=== PATIENT | female | born 1960 | race Caucasian/White ===

== ENCOUNTER → 2016-09-02 | Outpatient (CLI) | payer BC ==
[~2016-09-02] MED LIST: ASPI-482 PO; ESTR1PAT10 TD; ESTROGEN; GEMF600T3 PO; LISI10TA2 PO; METF500T4 PO; SIMV20TA3 PO
--- NOTE | 2016-09-02 12:23 | RAD ---
DATE: 09/02/2016 EXAM: DIGITAL SCREEN BILAT W/CAD HISTORY: Routine screening COMPARISON: 11/21/2014 This study was interpreted with the benefit of Computerized Aided Detection (CAD). FINDINGS: There are scattered fibroglandular densities in the breasts. No new or enlarging breast densities are seen. Benign type calcifications are present in both breasts. No suspicious microcalcifications have developed. IMPRESSION: Stable mammograms without evidence of malignancy. BI-RADS CATEGORY: 2 BENIGN FINDING(S) RECOMMENDED FOLLOW-UP: 12M 12 MONTH FOLLOW-UP PQRS compliance statement: Patient information was entered into a reminder system with a target due date for the next mammogram. Mammography is a sensitive method for finding small breast cancers, but it does not detect them all and is not a substitute for careful clinical examination. A negative mammogram does not negate a clinically suspicious finding and should not result in delay in biopsying a clinically suspicious abnormality. "Our facility is accredited by the [employer] Mammography Program."
== END | disposition home or self-care (01) ==
LOC: MAMMO 10:37
PROVIDERS: ATTEND Family Medicine
DX: Z12.31 Encounter for screening mammogram for malignant neoplasm of breast (principal)
CPT/HCPCS: G0202; 77067

== ENCOUNTER → 2017-09-16 | Outpatient (CLI) | payer BC | END | disposition home or self-care (01) | LOC: KCIC MAMMO 12:21 | DX: Z12.31 Encounter for screening mammogram for malignant neoplasm of breast (principal); N63.20 Unspecified lump in the left breast, unspecified quadrant; N63.10 Unspecified lump in the right breast, unspecified quadrant | CPT/HCPCS: 77067 ==

== ENCOUNTER → 2017-09-26 | Outpatient (CLI) | payer BC | END | disposition home or self-care (01) | LOC: KCIC MAMMO 12:45 | DX: N63.10 Unspecified lump in the right breast, unspecified quadrant (principal); N63.20 Unspecified lump in the left breast, unspecified quadrant; N60.01 Solitary cyst of right breast | CPT/HCPCS: 76641; 77066 ==

== ENCOUNTER 2017-10-18 08:51 | Day surgery (SDC) | payer BC ==
[2017-10-18] MEDS ORDERED: LIDOCAINE 1% Multi-Dose 20 ML VIAL. INJ (09:15)
[2017-10-18] MEDS: IV RINGERS,LACTATED 1000ML 1,000 ML IV (09:40)
[2017-10-18] MEDS ORDERED: fentaNYL PF VIAL 100 MCG/2 ML VIAL ×2 (12:11→14:05)
[2017-10-18] MEDS ORDERED: LIDOCAINE 1% PF 5 ML VIAL. (12:11)
[2017-10-18] MEDS ORDERED: PROPOFOL 20 ML IV (12:11)
[2017-10-18] MEDS ORDERED: SEVOFLURANE 16 TO 30 MINUTES. IH (13:07)
[2017-10-18] MEDS ORDERED: DEXAMETHASONE SOD PHOS 20 MG/5 ML VIAL. (13:07)
[2017-10-18] MEDS ORDERED: ONDANSETRON PF 4 MG/2 ML VIAL. (13:14)
[2017-10-18] MEDS: BUPIVACAINE-EPI 0.25%-1:200000 50 ML VIAL. (13:15)
[2017-10-18] MEDS ORDERED: IV RINGERS,LACTATED 1000ML 1,000 ML IV (13:42)
[2017-10-18] MEDS ORDERED: fentaNYL PF VIAL 100 MCG/2 ML VIAL IV (13:45)
[2017-10-18] MEDS ORDERED: MORPHINE SULFATE 2 MG/ML DISP.SYRIN. IV (13:45)
[2017-10-18] MEDS ORDERED: LIDOCAINE 1% PF 2 ML VIAL. ID (13:45)
[2017-10-18] MEDS ORDERED: ONDANSETRON PF 4 MG/2 ML VIAL. IV (13:45)
[2017-10-18 14:12] LABS: POC GLUCOSE 122 mg/dL (70-99)
[2017-10-18] MEDS: PROCHLORPERAZINE 10 MG/2 ML VIAL. IV (14:13)
[2017-10-18] MEDS: fentaNYL PF VIAL 100 MCG/2 ML VIAL IV (14:14)
[2017-10-18] MEDS ORDERED: HYDROcodone/APAP 5/325MG 1 TAB TABLET (14:30)
[2017-10-18] MEDS: HYDROcodone/APAP 5/325MG 1 TAB TABLET PO (14:35)
== END 2017-10-18 15:19 | disposition home or self-care (01) ==
LOC: US 08:51
DX: N63.10 Unspecified lump in the right breast, unspecified quadrant (principal)
CPT/HCPCS: 19083; 76098; 76942; 77065; 82962; J0780; J1100; J1956; J2405; J2704; J3010; J7120

== ENCOUNTER 2019-08-21 03:21 | Inpatient (IN) | payer BC ==
[~2019-08-21] VITALS: Ht 160 cm; Wt 91.5 kg
[~2019-08-21 03:21] MED LIST changes: -GEMF600T3 PO; +GEMF600T8 PO; +HYDR-3164 PO; +METF500T16 PO; -METF500T4 PO; +SIMV20TA18 PO; -SIMV20TA3 PO
[2019-08-21 04:04] LABS: BASO # 0.1 x10^3/uL (0.0-0.2); BASO % 1 % (0-3); EOS # 0.4 x10^3/uL (0.0-0.7); EOS % 4 % (0-3); HEMATOCRIT 41.3 % (36.0-47.0); LYMPH # 2.9 x10^3/uL (1.0-4.8); LYMPH % 27 % (24-48); MEAN CORPUSCULAR HEMOGLOBIN 29 pg (25-35); MEAN CORPUSCULAR HGB CONC 34 g/dL (31-37); MEAN CORPUSCULAR VOLUME 86 fL (79-100); MONO % 9 % (0-9); NEUT # 6.5 x10^3/uL (1.8-7.7); NEUT % 59 % (31-73); PLATELET COUNT 279 x10^3/uL (140-400); RED CELL DISTRIBUTION WIDTH 14.3 % (11.5-14.5)
--- NOTE | 2019-08-21 04:08 | RAD ---
CHEST AP ONLY Clinical Indication: Chest pain Comparison: None. Findings: The cardiomediastinal silhouette is normal. Lungs are clear. There is no pneumothorax. No pleural effusion is appreciated. No acute bone abnormality. IMPRESSION: No acute cardiopulmonary process. Electronically signed by: Chris Mejias MD (08/21/2019 4:05 AM) [id number]
--- NOTE | 2019-08-21 04:12 | PHYS DOC ---
Past Medical History Past Medical History: Diabetes-Type II, High Cholesterol, Hypertension Past Surgical History: Hysterectomy, Other Additional Past Surgical Histo: foot surgery Smoking Status: Never Smoker Alcohol Use: None Drug Use: None Adult General Chief Complaint Chief Complaint: MULTIPLE COMPLAINTS HPI HPI Patient is a 59 year old female with history of hypertension, dyslipidemia and diabetes who presents with multiple medical complaints. Patient reports hot flas hes and sweats upon from sleep 3 hours prior to ED arrival. She also reports tingling in feet and pain in left arm left elbow pain, no tenderness. Pain does not reproduce with movement. Reports nausea, no vomitingN No chest pain palpitations or shortness of breath. No urinary frequency urgency or burning. No other acute symptoms or complaints. [] Review of Systems Review of Systems Review of symptoms as per history of present illness. All other review symptoms are negative. All other systems were reviewed and found to be within normal limits, except as documented in this note. Current Medications Current Medications Current Medications Medications (Trade) Dose Ordered Sig/Darshan Start Time Stop Time Status Last Admin Dose Admin Aspirin (Children'S Aspirin) 324 mg 1X ONCE 08/21/19 05:00 08/21/19 05:01 UNV Clonidine HCl (Catapres) 0.1 mg STK-MED ONCE 08/21/19 04:17 08/21/19 04:18 DC Nitroglycerin (Nitrostat) 0.4 mg PRN Q5MIN PRN 08/21/19 05:00 UNV Allergies Allergies Allergies Coded Allergies Type Severity Reaction Last Updated Verified Cephalexin Monohydrate Allergy Intermediate 10/18/17 Yes Penicillins Allergy Intermediate 10/18/17 Yes Physical Exam Physical Exam Constitutional: Well developed, well nourished, no acute distress, non-toxic appearance. [] HENT: Normocephalic, atraumatic, bilateral external ears normal, oropharynx moist, nose normal. [] Eyes: PERRLA, EOMI, conjunctiva normal, no discharge. [] Neck: Normal range of motion, no tenderness. [] Cardiovascular:Heart rate regular rhythm, no murmur [] Lungs & Thorax: Bilateral breath sounds clear to auscultation [] Abdomen: Bowel sounds normal, soft, no tenderness. [] Skin: Warm, dry, no erythema, no rash. [] Back: No tenderness. [] Extremities: No tenderness, no edema. [] Neurologic: Alert and oriented X 3, normal motor function, normal sensory function, no focal deficits noted. [] Psychologic: Affect anxious, judgement normal, mood normal. [] Current Patient Data Vital Signs Vital Signs Date Time Temp Pulse Resp B/P (MAP) Pulse Ox O2 Delivery O2 Flow Rate FiO2 08/21/19 04:19 91 184/81 08/21/19 03:30 98.5 18 97 Room Air 98.5 Lab Values Laboratory Tests Test 08/21/19 03:55 White Blood Count 11.0 x10^3/uL (4.0-11.0) Red Blood Count 4.80 x10^6/uL (3.50-5.40) Hemoglobin 14.0 g/dL (12.0-15.5) Hematocrit 41.3 % (36.0-47.0) Mean Corpuscular Volume 86 fL (79-100) Mean Corpuscular Hemoglobin 29 pg (25-35) Mean Corpuscular Hemoglobin Concent 34 g/dL (31-37) Red Cell Distribution Width 14.3 % (11.5-14.5) Platelet Count 279 x10^3/uL (140-400) Neutrophils (%) (Auto) 59 % (31-73) Lymphocytes (%) (Auto) 27 % (24-48) Monocytes (%) (Auto) 9 % (0-9) Eosinophils (%) (Auto) 4 % (0-3) H Basophils (%) (Auto) 1 % (0-3) Neutrophils # (Auto) 6.5 x10^3/uL (1.8-7.7) Lymphocytes # (Auto) 2.9 x10^3/uL (1.0-4.8) Monocytes # (Auto) 1.0 x10^3/uL (0.0-1.1) Eosinophils # (Auto) 0.4 x10^3/uL (0.0-0.7) Basophils # (Auto) 0.1 x10^3/uL (0.0-0.2) Sodium Level 138 mmol/L (136-145) Potassium Level 3.4 mmol/L (3.5-5.1) L Chloride Level 100 mmol/L (98-107) Carbon Dioxide Level 26 mmol/L (21-32) Anion Gap 12 (6-14) Blood Urea Nitrogen 13 mg/dL (7-20) Creatinine 0.7 mg/dL (0.6-1.0) Estimated GFR (Cockcroft-Gault) 85.6 BUN/Creatinine Ratio 19 (6-20) Glucose Level 175 mg/dL (70-99) H Calcium Level 9.0 mg/dL (8.5-10.1) Total Bilirubin 0.5 mg/dL (0.2-1.0) Aspartate Amino Transferase (AST) 20 U/L (15-37) Alanine Aminotransferase (ALT) 25 U/L (14-59) Alkaline Phosphatase 62 U/L (46-116) Troponin I Quantitative < 0.017 ng/mL (0.000-0.055) Total Protein 7.9 g/dL (6.4-8.2) Albumin 3.5 g/dL (3.4-5.0) Albumin/Globulin Ratio 0.8 (1.0-1.7) L Laboratory Tests 08/21/19 03:55 Laboratory Tests 08/21/19 03:55 EKG EKG [EKG: Sinus rhythm, rate 94, no acute ST-T wave changes.] Radiology/Procedures Radiology/Procedures [CHEST XR: NAD] Course & Med Decision Making Course & Med Decision Making Pertinent Labs and Imaging studies reviewed. (See chart for details) [ATypical chest pain, accelerated hypertension with multiple cardiac risk factors. Iodine, aspirin and nitroglycerin given. Will admit to the hospitalist service with cardiology consult] Dragon Disclaimer Dragon Disclaimer This electronic medical record was generated, in whole or in part, using a voice recognition dictation system. Departure Departure Impression: Primary Impression: Chest pain Additional Impression: Accelerated hypertension Disposition: ADMITTED INPATIENT Condition: STABLE Referrals: LIVIA CASTILLO (PCP) Problem Qualifiers TAYLOR CHRISTENSEN DO Aug 21, 2019 04:12
[2019-08-21 04:14] LABS: CREATININE 0.7 mg/dL (0.6-1.0); GFR 85.6; POTASSIUM 3.4 mmol/L (3.5-5.1)
[2019-08-21] MEDS ORDERED: cloNIDine HCL 0.1 MG TABLET PO ONE (04:15)
[2019-08-21] MEDS ORDERED: cloNIDine HCL 0.1 MG TABLET ONE (04:17)
[2019-08-21 04:20] LABS: ALBUMIN 3.5 g/dL (3.4-5.0); ALBUMIN/GLOBULIN RATIO 0.8 (1.0-1.7); TOTAL BILIRUBIN 0.5 mg/dL (0.2-1.0); TOTAL PROTEIN 7.9 g/dL (6.4-8.2)
[2019-08-21] MEDS ORDERED: ONDANSETRON PF 4 MG/2 ML VIAL. IV PRN ×2 (05:00→13:15)
[2019-08-21] MEDS ORDERED: ASPIRIN CHEWABLE 81 MG TABLET. PO ONE (05:00)
[2019-08-21] MEDS ORDERED: NITROGLYCERIN SUBLINGUAL 0.4 MG BOTTLE OF 25. SL PRN (05:00)
--- NOTE | 2019-08-21 06:08 | EKG ---
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
--- NOTE | 2019-08-21 10:30 | PDOC1 ---
History and Physical Date of Admission Date of Admission DATE: 08/21/19 TIME: 10:30 Identification/Chief Complaint Chief Complaint seen in er , 59 year old female with history of hypertension, dyslipidemia and diabetes who presents with multiple medical complaints. Patient reports hot flashes and sweats upon from sleep 3 hours prior to ED arrival. She also reports tingling in feet and pain in left arm left elbow pain, no tenderness. Pain does not reproduce with movement. Reports nausea, no vomitingN No chest pain palpitations or shortness of breath. No urinary frequency urgency or burning Past Medical History Past Medical History Past Medical History Past Medical History Past Medical History: Diabetes-Type II, High Cholesterol, Hypertension Past Surgical History: Hysterectomy, Other Additional Past Surgical Histo: foot surgery Smoking Status: Never Smoker Alcohol Use: None Drug Use: None fhx obesity Cardiovascular: HTN, Hyperlipidemia Endocrine: Diabetes Family History Family History: Coronary Artery Disease, High Cholestrol, Hypertension Social History Smoke: No ALCOHOL: rare Drugs: None Current Problem List Problem List Problems Medical Problems: (1) Accelerated hypertension Status: Acute (2) Chest pain Status: Acute Current Medications Current Medications Current Medications Clonidine HCl (Catapres) 0.1 mg 1X ONCE PO Last administered on 08/21/19at 04:19; Start 08/21/19 at 04:15; Stop 08/21/19 at 04:16; Status DC Clonidine HCl (Catapres) 0.1 mg STK-MED ONCE .ROUTE ; Start 08/21/19 at 04:17; Stop 08/21/19 at 04:18; Status DC Aspirin (Children'S Aspirin) 324 mg 1X ONCE PO Last administered on 08/21/19at 05:33; Start 08/21/19 at 05:00; Stop 08/21/19 at 05:06; Status DC Nitroglycerin (Nitrostat) 0.4 mg PRN Q5MIN PRN SL CHEST PAIN; Start 08/21/19 at 05:00 Ondansetron HCl (Zofran) 4 mg PRN Q8HRS PRN IV NAUSEA/VOMITING; Start 08/21/19 at 05:00; Stop 08/22/19 at 04:59 Active Scripts Active Reported [place] 5-325 Tablet (Acetaminophen/Hydrocodone Bitart) 1 Each Tablet 1-2 Tab PO Q4HRS Vivelle-Dot (Estradiol) 1 Each Patch.tdsw 1 Each TD TUESDAY & TUESDAY Simvastatin 20 Mg Tablet 20 Mg PO Lisinopril 10 Mg Tablet 10 Mg PO Aspir 81 (Aspirin) 81 Mg Tablet.dr 81 Mg PO Metformin Hcl 500 Mg Tablet 500 Mg PO Gemfibrozil 600 Mg Tablet 600 Mg PO Allergies Allergies: Coded Allergies: Cephalexin Monohydrate (Verified Allergy, Intermediate, 10/18/17) Penicillins (Verified Allergy, Intermediate, 10/18/17) ROS Review of System Review of Systems Review of Systems Review of symptoms as per history of present illness. All other review symptoms are negative. 14 pt systems were reviewed and found to be within normal limits, except as documented General: No: Chills, Night Sweats, Fatigue, Malaise, Appetite, Other PSYCHOLOGICAL ROS: No: Anxiety, Behavioral Disorder, Concentration difficultie, Decreased libido, Depression, Disorientation, Hallucinations, Hostility, Irritablity, Memory difficulties, Mood Swings, Obsessive thoughts, Physical abuse, Sexual abuse, Sleep disturbances, Suicidal ideation, Other Eyes: No Blurry vision, No Decreased vision, No Double vision, No Dry eyes, No Excessive tearing, No Eye Pain, No Itchy Eyes, No Loss of vision, No Photophobia, No Scotomata, No Uses contacts, No Uses glasses, No Other HEENT: No: Heacaches, Visual Changes, Hearing change, Nasal congestion, Nasal discharge, Oral lesions, Sinus pain, Sore Throat, Epistaxis, Sneezing, Snoring, Tinnitus, Vertigo, Vocal changes, Other Hematological and Lymphatic: No: Bleeding Problems, Blood Clots, Blood Transfusions, Brusing, Night Sweats, Pallor, Swollen Lymph Nodes, Other ENDOCRINE: No: Breast Changes, Galactorrhea, Hair Pattern Changes, Hot Flashes, Malaise/lethargy, Mood Swings, Palpitations, Polydipsia/polyuria, Skin Changes, Temperature Intolerance, Unexpected Weight Changes, Other Respiratory: No: Cough, Hemoptysis, Orthopnea, Pleuritic Pain, Shortness of breath, SOB with excertion, Sputum Changes, Stridor, Tachypnea, Wheezing, Other Cardiovascular: yes Chest Pain; No Palpitations, No Orthopnea, No Paroxysmal Noc. Dyspnea, No Edema, No Lt Headedness, No Other Gastrointestinal: No Nausea, No Vomiting, No Abdominal Pain, No Diarrhea, No Constipation, No Melena, No Hematochezia, No Other Genitourinary: No Dysuria, No Frequency, No Incontinence, No Hematuria, No Retention, No Discharge, No Urgency, No Pain, No Flank Pain, No Other, No , No , No , No , No , No , No Musculoskeletal: No Gait Disturbance, No Joint Pain, No Joint Stiffness, No Joint Swelling, No Muscle Pain, No Muscular Weakness, No Pain In:, No Swelling In:, No Other Physical Exam Physical Exam Physical Exam Physical Exam Constitutional: Well developed, well nourished, no acute distress, non-toxic appearance. [] HENT: Normocephalic, atraumatic, bilateral external ears normal, oropharynx moist, nose normal. [] Eyes: PERRLA, EOMI, conjunctiva normal, no discharge. [] Neck: Normal range of motion, no tenderness. [] Cardiovascular:Heart rate regular rhythm, no murmur [] Lungs & Thorax: Bilateral breath sounds clear to auscultation [] Abdomen: Bowel sounds normal, soft, no tenderness. [] Skin: Warm, dry, no erythema, no rash. [] Back: No tenderness. [] Extremities: No tenderness, no edema. [] Neurologic: Alert and oriented X 3, normal motor function, normal sensory function, no focal deficits noted. [] Psychologic: Affect anxious, judgement normal, mood normal. [] General: Alert, Oriented X3, Cooperative, No acute distress HEENT: PERRLA Lungs: Clear to auscultation, Normal air movement Breasts: Not examined Abdomen: Normal bowel sounds, Soft Rectal Exam: not examined PELVIC: Examination not indicated Extremities: No cyanosis Neuro: Normal speech, Cranial nerves 3-12 NL Psych/Mental Status: Mental status NL, Mood NL Vitals Vitals Vital Signs Date Time Temp Pulse Resp B/P (MAP) Pulse Ox O2 Delivery O2 Flow Rate FiO2 08/21/19 09:00 74 18 150/92 (111) 94 Room Air 08/21/19 07:30 95.0 08/21/19 03:30 98.5 98.5 Labs Labs Laboratory Tests Test 08/21/19 03:55 White Blood Count 11.0 x10^3/uL (4.0-11.0) Red Blood Count 4.80 x10^6/uL (3.50-5.40) Hemoglobin 14.0 g/dL (12.0-15.5) Hematocrit 41.3 % (36.0-47.0) Mean Corpuscular Volume 86 fL (79-100) Mean Corpuscular Hemoglobin 29 pg (25-35) Mean Corpuscular Hemoglobin Concent 34 g/dL (31-37) Red Cell Distribution Width 14.3 % (11.5-14.5) Platelet Count 279 x10^3/uL (140-400) Neutrophils (%) (Auto) 59 % (31-73) Lymphocytes (%) (Auto) 27 % (24-48) Monocytes (%) (Auto) 9 % (0-9) Eosinophils (%) (Auto) 4 % (0-3) Basophils (%) (Auto) 1 % (0-3) Neutrophils # (Auto) 6.5 x10^3/uL (1.8-7.7) Lymphocytes # (Auto) 2.9 x10^3/uL (1.0-4.8) Monocytes # (Auto) 1.0 x10^3/uL (0.0-1.1) Eosinophils # (Auto) 0.4 x10^3/uL (0.0-0.7) Basophils # (Auto) 0.1 x10^3/uL (0.0-0.2) Sodium Level 138 mmol/L (136-145) Potassium Level 3.4 mmol/L (3.5-5.1) Chloride Level 100 mmol/L (98-107) Carbon Dioxide Level 26 mmol/L (21-32) Anion Gap 12 (6-14) Blood Urea Nitrogen 13 mg/dL (7-20) Creatinine 0.7 mg/dL (0.6-1.0) Estimated GFR (Cockcroft-Gault) 85.6 BUN/Creatinine Ratio 19 (6-20) Glucose Level 175 mg/dL (70-99) Calcium Level 9.0 mg/dL (8.5-10.1) Total Bilirubin 0.5 mg/dL (0.2-1.0) Aspartate Amino Transf (AST/SGOT) 20 U/L (15-37) Alanine Aminotransferase (ALT/SGPT) 25 U/L (14-59) Alkaline Phosphatase 62 U/L (46-116) Troponin I Quantitative < 0.017 ng/mL (0.000-0.055) Total Protein 7.9 g/dL (6.4-8.2) Albumin 3.5 g/dL (3.4-5.0) Albumin/Globulin Ratio 0.8 (1.0-1.7) Laboratory Tests Test 08/21/19 03:55 White Blood Count 11.0 x10^3/uL (4.0-11.0) Red Blood Count 4.80 x10^6/uL (3.50-5.40) Hemoglobin 14.0 g/dL (12.0-15.5) Hematocrit 41.3 % (36.0-47.0) Mean Corpuscular Volume 86 fL (79-100) Mean Corpuscular Hemoglobin 29 pg (25-35) Mean Corpuscular Hemoglobin Concent 34 g/dL (31-37) Red Cell Distribution Width 14.3 % (11.5-14.5) Platelet Count 279 x10^3/uL (140-400) Neutrophils (%) (Auto) 59 % (31-73) Lymphocytes (%) (Auto) 27 % (24-48) Monocytes (%) (Auto) 9 % (0-9) Eosinophils (%) (Auto) 4 % (0-3) Basophils (%) (Auto) 1 % (0-3) Neutrophils # (Auto) 6.5 x10^3/uL (1.8-7.7) Lymphocytes # (Auto) 2.9 x10^3/uL (1.0-4.8) Monocytes # (Auto) 1.0 x10^3/uL (0.0-1.1) Eosinophils # (Auto) 0.4 x10^3/uL (0.0-0.7) Basophils # (Auto) 0.1 x10^3/uL (0.0-0.2) Sodium Level 138 mmol/L (136-145) Potassium Level 3.4 mmol/L (3.5-5.1) Chloride Level 100 mmol/L (98-107) Carbon Dioxide Level 26 mmol/L (21-32) Anion Gap 12 (6-14) Blood Urea Nitrogen 13 mg/dL (7-20) Creatinine 0.7 mg/dL (0.6-1.0) Estimated GFR (Cockcroft-Gault) 85.6 BUN/Creatinine Ratio 19 (6-20) Glucose Level 175 mg/dL (70-99) Calcium Level 9.0 mg/dL (8.5-10.1) Total Bilirubin 0.5 mg/dL (0.2-1.0) Aspartate Amino Transf (AST/SGOT) 20 U/L (15-37) Alanine Aminotransferase (ALT/SGPT) 25 U/L (14-59) Alkaline Phosphatase 62 U/L (46-116) Troponin I Quantitative < 0.017 ng/mL (0.000-0.055) Total Protein 7.9 g/dL (6.4-8.2) Albumin 3.5 g/dL (3.4-5.0) Albumin/Globulin Ratio 0.8 (1.0-1.7) Images Images CHEST AP ONLY Clinical Indication: Chest pain Comparison: None. Findings: The cardiomediastinal silhouette is normal. Lungs are clear. There is no pneumothorax. No pleural effusion is appreciated. No acute bone abnormality. IMPRESSION: No acute cardiopulmonary process. Electronically signed by: Chris Washington MD (08/21/2019 4:05 AM) [id number] DICTATED and SIGNED BY: CHRIS WASHINGTON MD DATE: 08/21/19 0405 VTE Prophylaxis Ordered VTE Prophylaxis Devices: Yes VTE Pharmacological Prophylaxi: Yes Assessment/Plan Assessment/Plan impression HTN urgency unstable angina Obesity, morbid Prolonged QT Hyperlipidemia DM2? plan admit bp control cardiology consult dvt prophylaxis iv hydralazine 10mg q 4 hrs prn bp support CATHY BAEZA MD Aug 21, 2019 10:30
--- NOTE | 2019-08-21 11:36 | PDOC2 ---
YULY ERVIN CELL TESTER 08/21/19 1136: CARDIAC CONSULT DATE OF CONSULT Date of Consult DATE: 08/21/19 TIME: 11:33 REASON FOR CONSULT Reason for Consult: Chest pain REFERRING PHYSICIAN Referring Physician: King SOURCE Source: Chart review, Patient HISTORY OF PRESENT ILLNESS HISTORY OF PRESENT ILLNESS This is a pleasant 59 yo female admitted for complains vomiting and feeling flushed with elbow aching. Repeatedly denies any chest pain. Reports that she woke at around 2AM and was complaining of the latter and also reports of some SOA. There has been no recurrence of her symptoms. She takes lisinopril for HTN and also has DM. Her lisinopril was increased 2 weeks ago and upon admission her SBP was in the 200s. Denies any processed food and cooks her meal for the most part and no symptoms of JOSÉ MIGUEL. She does take HRT She does not routinely exercise. No significant wt gain recently. She has HLP and DM2. NO exertional CP, HORTA. NO recent falls or injury. No past hx of CAD, VTE. PAST MEDICAL HISTORY Cardiovascular: HTN, Hyperlipidemia Pulmonary: No pertinent hx CENTRAL NERVOUS SYSTEM: Other (No pertinent history) GI: No pertinent hx Heme/Onc: No pertinent hx Hepatobiliary: No pertinent hx Psych: No pertinent hx Musculoskeletal: low back pain, Osteoarthritis, Other (sciatica) Rheumatologic: No pertinent hx Infectious disease: No pertinent hx ENT: No pertinent hx Renal/: No pertinent hx Endocrine: Diabetes (2) Dermatology: No pertinent hx PAST SURGICAL HISTORY Past Surgical History: Arthroscopy (right foot), Cataract Removal (left), Hy sterectomy FAMILY HISTORY Family History: Heart Disease SOCIAL HISTORY Smoke: No ALCOHOL: occassional Drugs: None Lives: with Family CURRENT MEDICATIONS CURRENT MEDICATIONS Current Medications Medications (Trade) Dose Ordered Sig/Darshan Route PRN Reason Start Time Stop Time Status Last Admin Dose Admin Clonidine HCl (Catapres) 0.1 mg 1X ONCE PO 08/21/19 04:15 08/21/19 04:16 DC 08/21/19 04:19 Aspirin (Children'S Aspirin) 324 mg 1X ONCE PO 08/21/19 05:00 08/21/19 05:06 DC 08/21/19 05:33 ALLERGIES ALLERGIES: Coded Allergies: Cephalexin Monohydrate (Verified Allergy, Intermediate, 10/18/17) Penicillins (Verified Allergy, Intermediate, 10/18/17) ROS Review of System 14 point ROS evaluated with pertinent positives noted per HPI PHYSICAL EXAM General: Alert, Oriented X3, Cooperative, No acute distress HEENT: Atraumatic, Mucous membr. moist/pink Lungs: Clear to auscultation, Normal air movement Heart: Regular rate (SR), Normal S1, Normal S2, Other (2/6 systolic murmur to LLS border) Abdomen: Soft, No tenderness Extremities: No cyanosis, No edema Skin: No breakdown, No significant lesion Neuro: Normal speech, Sensation intact Psych/Mental Status: Mental status NL, Mood NL MUSCULOSKELETAL: Osteoarthritic changes both hands VITALS/I&O VITALS/I&O: Vital Signs Date Time Temp Pulse Resp B/P (MAP) Pulse Ox O2 Delivery O2 Flow Rate FiO2 08/21/19 09:00 74 18 150/92 (111) 94 Room Air 08/21/19 07:30 95.0 08/21/19 03:30 98.5 98.5 LABS Lab: Laboratory Tests Test 08/21/19 03:55 White Blood Count 11.0 x10^3/uL (4.0-11.0) Red Blood Count 4.80 x10^6/uL (3.50-5.40) Hemoglobin 14.0 g/dL (12.0-15.5) Hematocrit 41.3 % (36.0-47.0) Mean Corpuscular Volume 86 fL (79-100) Mean Corpuscular Hemoglobin 29 pg (25-35) Mean Corpuscular Hemoglobin Concent 34 g/dL (31-37) Red Cell Distribution Width 14.3 % (11.5-14.5) Platelet Count 279 x10^3/uL (140-400) Neutrophils (%) (Auto) 59 % (31-73) Lymphocytes (%) (Auto) 27 % (24-48) Monocytes (%) (Auto) 9 % (0-9) Eosinophils (%) (Auto) 4 % (0-3) H Basophils (%) (Auto) 1 % (0-3) Neutrophils # (Auto) 6.5 x10^3/uL (1.8-7.7) Lymphocytes # (Auto) 2.9 x10^3/uL (1.0-4.8) Monocytes # (Auto) 1.0 x10^3/uL (0.0-1.1) Eosinophils # (Auto) 0.4 x10^3/uL (0.0-0.7) Basophils # (Auto) 0.1 x10^3/uL (0.0-0.2) Sodium Level 138 mmol/L (136-145) Potassium Level 3.4 mmol/L (3.5-5.1) L Chloride Level 100 mmol/L (98-107) Carbon Dioxide Level 26 mmol/L (21-32) Anion Gap 12 (6-14) Blood Urea Nitrogen 13 mg/dL (7-20) Creatinine 0.7 mg/dL (0.6-1.0) Estimated GFR (Cockcroft-Gault) 85.6 BUN/Creatinine Ratio 19 (6-20) Glucose Level 175 mg/dL (70-99) H Calcium Level 9.0 mg/dL (8.5-10.1) Total Bilirubin 0.5 mg/dL (0.2-1.0) Aspartate Amino Transferase (AST) 20 U/L (15-37) Alanine Aminotransferase (ALT) 25 U/L (14-59) Alkaline Phosphatase 62 U/L (46-116) Troponin I Quantitative < 0.017 ng/mL (0.000-0.055) Total Protein 7.9 g/dL (6.4-8.2) Albumin 3.5 g/dL (3.4-5.0) Albumin/Globulin Ratio 0.8 (1.0-1.7) L Laboratory Tests 08/21/19 03:55 Laboratory Tests 08/21/19 03:55 ECHOCARDIOGRAM ECHOCARDIOGRAM <Conclusion> Mild leftv ventricular hypertrophy. Normal systolic function and an ejection fraction of 76%. Grade I diastolic pressure. The aortic and mitral valves are normal in structure and function. There is mild tricuspid regurgitation. Mild pulmonary hypertension with a right ventricular systolicpressure of40 mm. Hg. The ascending aorta is mildle dilated DATE: 07/18/13 2559 ASSESSMENT/PLAN ASSESSMENT/PLAN 1. HTN urgency: repeatedly denies any chest pain 2. Obesity 3. HLP 4. DM2 5. HRT-Estradiol Recommendations 1. DASH diet. Dietitian consult 2. Restart home lisinopril and will add HCTZ. Labetolol IV PRN 3. Takes crestor 10 mg at home. Hx of myalgia with other statin. 4. Discussed wt loss and exercise. 5. HBPM bid for 1 week. 6. Follow up in our office. Consider for outpt echo. CJ CORTEZ MD 08/21/19 1544: CARDIAC CONSULT ASSESSMENT/PLAN ASSESSMENT/PLAN Patient seen and examined. Agree with J[employer]ILDER's assessment and plan. Agree with resuming home antihypertensives and add HCTZ for better blood pr essure control Clinical picture not consistent with ACS. Cardiac enzymes negative. Plan outpatient 2-D echo and stress test. Thank you for your consultation. YULY ERVIN APRN Aug 21, 2019 11:36 CJ CORTEZ MD Aug 21, 2019 15:44
[2019-08-21 12:53] LABS: CHOLESTEROL/HDL RATIO 3.3
[2019-08-21] MEDS ORDERED: LISINOPRIL 10 MG TABLET PO SCH (13:00)
[2019-08-21] MEDS ORDERED: HYDROcodone/APAP 5/325MG 1 TAB TABLET PO PRN ×2 (13:00→14:00)
[2019-08-21] MEDS ORDERED: DOCUSATE SODIUM 100 MG CAPSULE. PO PRN (13:15)
[2019-08-21] MEDS ORDERED: ACETAMINOPHEN 325 MG TABLET. PO PRN (13:15)
[2019-08-21] MEDS ORDERED: LORazepam 0.5 MG TABLET PO PRN (13:15)
[2019-08-21] MEDS ORDERED: guaiFENesin ORAL 200 MG/10 ML LIQUID. PO PRN (13:15)
[2019-08-21] MEDS ORDERED: MAG HYDROX/ALUMINUM HYD/SIMETH 30 ML ORAL.SUSP PO PRN (13:15)
[2019-08-21] MEDS ORDERED: 0.9 % SODIUM CHLORIDE 10 ML DISP.SYRIN. IV PRN (13:15)
[2019-08-21] MEDS ORDERED: ZOLPIDEM 5 MG TABLET. PO PRN (13:15)
[2019-08-21] MEDS ORDERED: cloNIDine HCL 0.1 MG TABLET PO PRN (13:15)
[2019-08-21] MEDS ORDERED: ALBUTEROL SULFATE 2.5 MG/3 ML NEBU. NEB PRN (13:15)
[2019-08-21] MEDS: ENOXAPARIN 40 MG/0.4 ML SYRINGE. SQ SCH (14:00)
[2019-08-21] MEDS ORDERED: LABETALOL 20 MG/4 ML DISP.SYRIN. IVP PRN (14:45)
[2019-08-21] MEDS: LISINOPRIL 20 MG TABLET PO SCH (15:29)
[2019-08-21] MEDS: hydroCHLOROthiazide 25 MG TABLET PO SCH (15:30)
[2019-08-21] MEDS ORDERED: CRESTOR5 MG PO (15:36)
[2019-08-21 17:00] VITALS: BP 172/96
[2019-08-21] MEDS: hydrALAZINE 20 MG/ML VIAL. IVP PRN ×2 (18:44→23:45)
[2019-08-21 19:20] VITALS: BP 151/77
[2019-08-21] MEDS ORDERED: ATORVASTATIN CALCIUM 40 MG TABLET. PO SCH (21:00)
[2019-08-21] MEDS ORDERED: SIMVASTATIN 20 MG TABLET PO SCH (21:00)
[2019-08-21 23:20] VITALS: BP 159/90
[2019-08-22 03:20] VITALS: BP 108/48
[2019-08-22] MEDS ORDERED: GEMFIBROZIL 600 MG TABLET. PO SCH (07:00)
[2019-08-22 07:59] VITALS: BP 135/75
[2019-08-22] MEDS ORDERED: metFORMIN 500 MG TABLET PO SCH (08:00)
[2019-08-22] MEDS ORDERED: ASPIRIN ENTERIC COATED 81 MG TABLET.DR. PO SCH (08:00)
--- NOTE | 2019-08-22 09:24 | PDOC ---
PROGRESS NOTES History of Present Illness History of Present Illness VTE Prophylaxis Ordered VTE Prophylaxis Devices: Yes VTE Pharmacological Prophylaxi: Yes DISCHARGE DX ==== Assessment/Plan impression HTN urgency unstable angina Obesity, morbid Prolonged QT Hyperlipidemia DM2? plan admit bp control cardiology consult dvt prophylaxis iv hydralazine 10mg q 4 hrs prn bp support Outpatient echo and stress test arranged. Follow up with Dr. Montes 09/17/19 at 3:00pm D/C PLANNING 23 MIN Vitals Vitals Vital Signs Date Time Temp Pulse Resp B/P (MAP) Pulse Ox O2 Delivery O2 Flow Rate FiO2 08/22/19 07:59 97.8 93 18 135/75 (95) 95 Room Air 97.8 08/21/19 07:30 95.0 Physical Exam General: Alert, Oriented X3, Cooperative, No acute distress Heart: Regular rate (SR), Normal S1, Normal S2, Other (2/6 systolic murmur to LLS border) Lungs: Clear Abdomen: Normal bowel sounds, Soft, No tenderness Extremities: No cyanosis, No edema Skin: No breakdown, No significant lesion Labs LABS Laboratory Tests Test 08/21/19 11:00 08/21/19 16:44 08/21/19 20:51 08/22/19 07:36 Troponin I Quantitative < 0.017 ng/mL (0.000-0.055) Glucose (Fingerstick) 179 mg/dL (70-99) 108 mg/dL (70-99) 187 mg/dL (70-99) Assessment and Plan Assessmemt and Plan Problems Medical Problems: (1) Accelerated hypertension Status: Acute (2) Chest pain Status: Acute Comment Review of Relevant I have reviewed the following items luis (where applicable) has been applied. Labs Laboratory Tests Test 08/21/19 03:55 08/21/19 11:00 08/21/19 16:44 08/21/19 20:51 White Blood Count 11.0 x10^3/uL (4.0-11.0) Red Blood Count 4.80 x10^6/uL (3.50-5.40) Hemoglobin 14.0 g/dL (12.0-15.5) Hematocrit 41.3 % (36.0-47.0) Mean Corpuscular Volume 86 fL (79-100) Mean Corpuscular Hemoglobin 29 pg (25-35) Mean Corpuscular Hemoglobin Concent 34 g/dL (31-37) Red Cell Distribution Width 14.3 % (11.5-14.5) Platelet Count 279 x10^3/uL (140-400) Neutrophils (%) (Auto) 59 % (31-73) Lymphocytes (%) (Auto) 27 % (24-48) Monocytes (%) (Auto) 9 % (0-9) Eosinophils (%) (Auto) 4 % (0-3) Basophils (%) (Auto) 1 % (0-3) Neutrophils # (Auto) 6.5 x10^3/uL (1.8-7.7) Lymphocytes # (Auto) 2.9 x10^3/uL (1.0-4.8) Monocytes # (Auto) 1.0 x10^3/uL (0.0-1.1) Eosinophils # (Auto) 0.4 x10^3/uL (0.0-0.7) Basophils # (Auto) 0.1 x10^3/uL (0.0-0.2) Sodium Level 138 mmol/L (136-145) Potassium Level 3.4 mmol/L (3.5-5.1) Chloride Level 100 mmol/L (98-107) Carbon Dioxide Level 26 mmol/L (21-32) Anion Gap 12 (6-14) Blood Urea Nitrogen 13 mg/dL (7-20) Creatinine 0.7 mg/dL (0.6-1.0) Estimated GFR (Cockcroft-Gault) 85.6 BUN/Creatinine Ratio 19 (6-20) Glucose Level 175 mg/dL (70-99) Calcium Level 9.0 mg/dL (8.5-10.1) Total Bilirubin 0.5 mg/dL (0.2-1.0) Aspartate Amino Transf (AST/SGOT) 20 U/L (15-37) Alanine Aminotransferase (ALT/SGPT) 25 U/L (14-59) Alkaline Phosphatase 62 U/L (46-116) Troponin I Quantitative < 0.017 ng/mL (0.000-0.055) < 0.017 ng/mL (0.000-0.055) Total Protein 7.9 g/dL (6.4-8.2) Albumin 3.5 g/dL (3.4-5.0) Albumin/Globulin Ratio 0.8 (1.0-1.7) Triglycerides Level 173 mg/dL (0-150) Cholesterol Level 177 mg/dL (0-200) LDL Cholesterol, Calculated 88 mg/dL (0-100) VLDL Cholesterol, Calculated 35 mg/dL (0-40) Non-HDL Cholesterol Calculated 123 mg/dL (0-129) HDL Cholesterol 54 mg/dL (40-60) Cholesterol/HDL Ratio 3.3 Thyroid Stimulating Hormone (TSH) 5.039 uIU/mL (0.358-3.74) Glucose (Fingerstick) 179 mg/dL (70-99) 108 mg/dL (70-99) Test 08/22/19 07:36 Glucose (Fingerstick) 187 mg/dL (70-99) Laboratory Tests Test 08/21/19 11:00 08/21/19 16:44 08/21/19 20:51 08/22/19 07:36 Troponin I Quantitative < 0.017 ng/mL (0.000-0.055) Glucose (Fingerstick) 179 mg/dL (70-99) 108 mg/dL (70-99) 187 mg/dL (70-99) Medications Current Medications Clonidine HCl (Catapres) 0.1 mg 1X ONCE PO Last administered on 08/21/19at 04:19; Start 08/21/19 at 04:15; Stop 08/21/19 at 04:16; Status DC Clonidine HCl (Catapres) 0.1 mg STK-MED ONCE .ROUTE ; Start 08/21/19 at 04:17; Stop 08/21/19 at 04:18; Status DC Aspirin (Children'S Aspirin) 324 mg 1X ONCE PO Last administered on 08/21/19at 05:33; Start 08/21/19 at 05:00; Stop 08/21/19 at 05:06; Status DC Nitroglycerin (Nitrostat) 0.4 mg PRN Q5MIN PRN SL CHEST PAIN; Start 08/21/19 at 05:00 Ondansetron HCl (Zofran) 4 mg PRN Q8HRS PRN IV NAUSEA/VOMITING; Start 08/21/19 at 05:00; Stop 08/21/19 at 17:30; Status DC Aspirin (Ecotrin) 81 mg DAILY08 PO ; Start 08/22/19 at 08:00 Gemfibrozil (Lopid) 600 mg DAILY07 PO ; Start 08/22/19 at 07:00 Acetaminophen/ Hydrocodone Bitart (Lortab 5/325) 1 tab PRN Q4HRS PRN PO MODERATE PAIN; Start 08/21/19 at 13:00 Lisinopril (Prinivil) 10 mg DAILY08 PO ; Start 08/21/19 at 13:00; Stop 08/21/19 at 13:47; Status DC Metformin HCl (Glucophage) 500 mg DAILY08 PO ; Start 08/22/19 at 08:00 Simvastatin (Zocor) 20 mg HS PO ; Start 08/21/19 at 21:00; Stop 08/21/19 at 17:27; Status DC Estradiol (Climara Weekly) 0.1 mg QSU TD ; Start 08/26/19 at 16:00 Sodium Chloride (Normal Saline Flush) 3 ml QSHIFT PRN IV AFTER MEDS AND BLOOD DRAWS; Start 08/21/19 at 13:15 Ondansetron HCl (Zofran) 4 mg PRN Q4HRS PRN IV NAUSEA/VOMITING; Start 08/21/19 at 13:15 Zolpidem Tartrate (Ambien) 5 mg PRN QHS PRN PO INSOMNIA; Start 08/21/19 at 13:15 Acetaminophen (Tylenol) 650 mg PRN Q4HRS PRN PO TEMP OVER 100.4F OR MILD PAIN; Start 08/21/19 at 13:15 Al Hydroxide/Mg Hydroxide (Mylanta Plus Xs) 30 ml PRN DAILY PRN PO HEARTBURN / GAS; Start 08/21/19 at 13:15 Clonidine HCl (Catapres) 0.1 mg PRN Q6HRS PRN PO SBP>160 OR DBP>90; Start 08/21/19 at 13:15 Docusate Sodium (Colace) 100 mg PRN BID PRN PO CONSTIPATION; Start 08/21/19 at 13:15 Albuterol Sulfate (Ventolin Neb Soln) 2.5 mg PRN Q4HRS PRN NEB SHORTNESS OF BREATH; Start 08/21/19 at 13:15 Guaifenesin (Robitussin) 200 mg PRN Q4HRS PRN PO COUGH; Start 08/21/19 at 13:15 Lorazepam (Ativan) 0.5 mg PRN Q4HRS PRN PO ANXIETY / AGITATION; Start 08/21/19 at 13:15 Enoxaparin Sodium (Lovenox 40mg Syringe) 40 mg Q24H SQ ; Start 08/21/19 at 14:00 Hydralazine HCl (Apresoline Inj) 10 mg PRN Q4HRS PRN IVP ELEVATED BP, SEE COMMENTS Last administered on 08/21/19at 23:45; Start 08/21/19 at 13:15 Hydrochlorothiazide (Hydrodiuril) 25 mg DAILY PO Last administered on 08/21/19at 15:30; Start 08/21/19 at 13:15 Lisinopril (Prinivil) 20 mg DAILY PO Last administered on 08/21/19at 15:29; Start 08/21/19 at 13:15 Acetaminophen/ Hydrocodone Bitart (Lortab 5/325) 2 tab PRN Q4HRS PRN PO SEVERE PAIN 7-10; Start 08/21/19 at 14:00 Labetalol HCl (Normodyne Iv Push) 20 mg PRN Q2HR PRN IVP HYPERTENSION; Start 08/21/19 at 14:45 Atorvastatin Calcium (Lipitor) 40 mg QHS PO Last administered on 08/21/19at 22:01; Start 08/21/19 at 21:00 Estradiol (Climara Weekly) 0.1 mg QTH TD ; Start 08/23/19 at 16:00 Active Scripts Active Reported Crestor (Rosuvastatin Calcium) 5 Mg Tablet 10 Mg PO HS [place] 5-325 Tablet (Acetaminophen/Hydrocodone Bitart) 1 Each Tablet 1-2 Tab PO Q4HRS Vivelle-Dot (Estradiol) 1 Each Patch.tdsw 1 Each TD TUESDAY & TUESDAY Lisinopril 10 Mg Tablet 20 Mg PO DAILY Aspir 81 (Aspirin) 81 Mg Tablet.dr 81 Mg PO DAILY Metformin Hcl 500 Mg Tablet 500 Mg PO BID Gemfibrozil 600 Mg Tablet 600 Mg PO Vitals/I & O Vital Sign - Last 24 Hours 08/21/19 08/21/19 08/21/19 08/21/19 10:00 11:00 12:00 13:10 Pulse 72 74 72 72 Resp 18 18 18 18 B/P (MAP) 162/84 (110) 156/86 (109) 165/98 (120) 180/90 (120) Pulse Ox 95 96 94 96 O2 Delivery Room Air Room Air Room Air Room Air 08/21/19 08/21/19 08/21/19 08/21/19 15:29 15:51 17:00 18:44 Temp 98.2 98.2 Pulse 81 80 80 Resp 18 B/P (MAP) 197/95 172/96 (121) 172/96 Pulse Ox 95 O2 Delivery Room Air Room Air 08/21/19 08/21/19 08/21/19 08/21/19 19:20 20:00 23:20 23:45 Temp 97.6 98.4 97.6 98.4 Pulse 75 90 90 Resp 16 16 B/P (MAP) 151/77 (101) 159/90 (113) 159/97 Pulse Ox 97 94 O2 Delivery Room Air Room Air Room Air 08/22/19 08/22/19 03:20 07:59 Temp 98.6 97.8 98.6 97.8 Pulse 83 93 Resp 16 18 B/P (MAP) 108/48 (68) 135/75 (95) Pulse Ox 96 95 O2 Delivery Room Air Room Air Intake and Output 08/21/19 08/21/19 08/22/19 15:00 23:00 07:00 Intake Total 640 ml 600 ml Balance 640 ml 600 ml CATHY BAEZA MD Aug 22, 2019 09:24
[2019-08-22] MEDS: LISINOPRIL 20 MG TABLET PO SCH (09:46)
[2019-08-22] MEDS: hydroCHLOROthiazide 25 MG TABLET PO SCH (09:46)
--- NOTE | 2019-08-22 11:29 | PDOC ---
CARDIO Progress Notes Date and Time Date of Service 08/22/19 Time of Evaluation 1120 Subjective Subjective: No Chest Pain, No shortness of breath, No Palpitations Vitals Vitals Vital Signs Date Time Temp Pulse Resp B/P (MAP) Pulse Ox O2 Delivery O2 Flow Rate FiO2 08/22/19 09:46 93 135/75 08/22/19 07:59 97.8 18 95 Room Air 97.8 08/21/19 07:30 95.0 Weight Weight [ ] Input and Output Intake and Output Intake and Output 08/22/19 07:00 Intake Total 1240 ml Balance 1240 ml Intake Oral 1240 ml # Voids 3 Laboratory Labs Laboratory Tests Test 08/21/19 16:44 08/21/19 20:51 08/22/19 07:36 08/22/19 10:53 Glucose (Fingerstick) 179 mg/dL (70-99) 108 mg/dL (70-99) 187 mg/dL (70-99) 234 mg/dL (70-99) Physical Exam HEENT: Neck Supple W Full Motion Chest: Symmetric LUNGS: Clear to Auscultation Heart: S1S2, RRR, murmurs (2/6 systolic murmur ) Extremities: No Edema Neurology: alert, oriented, follow commands Assessment Assessment 1. HTN urgency; now better controlled with addition of HCTZ 2. Obesity 3. Hyperlipidemia; on Crestor 10 mg at home. Hx of myalgia with other statin. 4. Diabetes, II; as per PCP 5. HRT-Estradiol Recommendations Continue current antiHTN therapy Encouraged wt loss, exercise. Outpatient echo and stress test arranged. Follow up in our office with Dr. Petersen 09/17/19 at 3:00pm. DOMI GARCIA APRN Aug 22, 2019 11:29
[2019-08-22 11:37] VITALS: BP 119/80
--- NOTE | 2019-08-22 12:55 | PDOC3 ---
Discharge Summary Date of Admission: Aug 21, 2019 Date of Discharge: Aug 22, 2019 Follow-Up: Other (09/16) Admitting Diagnosis comment: DISCHARGE DX ==== Assessment/Plan impression HTN urgency unstable angina Obesity, morbid Prolonged QT Hyperlipidemia DM2? plan admit bp control cardiology consult OK WITH D/C TODAY dvt prophylaxis iv hydralazine 10mg q 4 hrs prn bp support Outpatient echo and stress test arranged. Follow up with Dr. Montes 09/17/19 at 3:00pm D/C PLANNING 23 MIN Vitals Vitals Vital Signs Date Time Temp Pulse Resp B/P (MAP) Pulse Ox O2 Delivery O2 Flow Rate FiO2 08/22/19 07:59 97.8 93 18 135/75 (95) 95 Room Air 97.8 08/21/19 07:30 95.0 Physical Exam General: Alert, Oriented X3, Cooperative, No acute distress Heart: Regular rate (SR), Normal S1, Normal S2, Other (2/6 systolic murmur to LLS border) Lungs: Clear Abdomen: Normal bowel sounds, Soft, No tenderness Extremities: No cyanosis, No edema Skin: No breakdown, No significant lesion FINAL DIAGNOSIS Problems Medical Problems: (1) Accelerated hypertension Status: Acute (2) Chest pain Status: Acute Brief Hospital Course Ms. Montano is a 59 old [sex] who presented with [ HYPERTENSION, CHEST PAIN] CONDITION AT DISCHARGE: Improved Discharge Medications Current Medications Clonidine HCl (Catapres) 0.1 mg 1X ONCE PO Last administered on 08/21/19at 04:19; Start 08/21/19 at 04:15; Stop 08/21/19 at 04:16; Status DC Clonidine HCl (Catapres) 0.1 mg STK-MED ONCE .ROUTE ; Start 08/21/19 at 04:17; Stop 08/21/19 at 04:18; Status DC Aspirin (Children'S Aspirin) 324 mg 1X ONCE PO Last administered on 08/21/19at 05:33; Start 08/21/19 at 05:00; Stop 08/21/19 at 05:06; Status DC Nitroglycerin (Nitrostat) 0.4 mg PRN Q5MIN PRN SL CHEST PAIN; Start 08/21/19 at 05:00 Ondansetron HCl (Zofran) 4 mg PRN Q8HRS PRN IV NAUSEA/VOMITING; Start 08/21/19 at 05:00; Stop 08/21/19 at 17:30; Status DC Aspirin (Ecotrin) 81 mg DAILY08 PO Last administered on 08/22/19at 09:45; Start 08/22/19 at 08:00 Gemfibrozil (Lopid) 600 mg DAILY07 PO ; Start 08/22/19 at 07:00 Acetaminophen/ Hydrocodone Bitart (Lortab 5/325) 1 tab PRN Q4HRS PRN PO MOD ERATE PAIN; Start 08/21/19 at 13:00 Lisinopril (Prinivil) 10 mg DAILY08 PO ; Start 08/21/19 at 13:00; Stop 08/21/19 at 13:47; Status DC Metformin HCl (Glucophage) 500 mg DAILY08 PO Last administered on 08/22/19at 09:46; Start 08/22/19 at 08:00 Simvastatin (Zocor) 20 mg HS PO ; Start 08/21/19 at 21:00; Stop 08/21/19 at 17:27; Status DC Estradiol (Climara Weekly) 0.1 mg QSU TD ; Start 08/26/19 at 16:00 Sodium Chloride (Normal Saline Flush) 3 ml QSHIFT PRN IV AFTER MEDS AND BLOOD DRAWS; Start 08/21/19 at 13:15 Ondansetron HCl (Zofran) 4 mg PRN Q4HRS PRN IV NAUSEA/VOMITING; Start 08/21/19 at 13:15 Zolpidem Tartrate (Ambien) 5 mg PRN QHS PRN PO INSOMNIA; Start 08/21/19 at 13:15 Acetaminophen (Tylenol) 650 mg PRN Q4HRS PRN PO TEMP OVER 100.4F OR MILD PAIN; Start 08/21/19 at 13:15 Al Hydroxide/Mg Hydroxide (Mylanta Plus Xs) 30 ml PRN DAILY PRN PO HEARTBURN / GAS; Start 08/21/19 at 13:15 Clonidine HCl (Catapres) 0.1 mg PRN Q6HRS PRN PO SBP>160 OR DBP>90; Start 08/21/19 at 13:15 Docusate Sodium (Colace) 100 mg PRN BID PRN PO CONSTIPATION; Start 08/21/19 at 13:15 Albuterol Sulfate (Ventolin Neb Soln) 2.5 mg PRN Q4HRS PRN NEB SHORTNESS OF BREATH; Start 08/21/19 at 13:15 Guaifenesin (Robitussin) 200 mg PRN Q4HRS PRN PO COUGH; Start 08/21/19 at 13:15 Lorazepam (Ativan) 0.5 mg PRN Q4HRS PRN PO ANXIETY / AGITATION; Start 08/21/19 at 13:15 Enoxaparin Sodium (Lovenox 40mg Syringe) 40 mg Q24H SQ ; Start 08/21/19 at 14:00 Hydralazine HCl (Apresoline Inj) 10 mg PRN Q4HRS PRN IVP ELEVATED BP, SEE COMMENTS Last administered on 08/21/19at 23:45; Start 08/21/19 at 13:15 Hydrochlorothiazide (Hydrodiuril) 25 mg DAILY PO Last administered on 08/22/19at 09:46; Start 08/21/19 at 13:15 Lisinopril (Prinivil) 20 mg DAILY PO Last administered on 08/22/19at 09:46; Start 08/21/19 at 13:15 Acetaminophen/ Hydrocodone Bitart (Lortab 5/325) 2 tab PRN Q4HRS PRN PO SEVERE PAIN 7-10; Start 08/21/19 at 14:00 Labetalol HCl (Normodyne Iv Push) 20 mg PRN Q2HR PRN IVP HYPERTENSION; Start 08/21/19 at 14:45 Atorvastatin Calcium (Lipitor) 40 mg QHS PO Last administered on 08/21/19at 22:01; Start 08/21/19 at 21:00 Estradiol (Climara Weekly) 0.1 mg QTH TD ; Start 08/23/19 at 16:00 Active Scripts Active Reported Crestor (Rosuvastatin Calcium) 5 Mg Tablet 10 Mg PO HS [place] 5-325 Tablet (Acetaminophen/Hydrocodone Bitart) 1 Each Tablet 1-2 Tab PO Q4HRS Vivelle-Dot (Estradiol) 1 Each Patch.tdsw 1 Each TD TUESDAY & TUESDAY Lisinopril 10 Mg Tablet 20 Mg PO DAILY Aspir 81 (Aspirin) 81 Mg Tablet.dr 81 Mg PO DAILY Metformin Hcl 500 Mg Tablet 500 Mg PO BID Gemfibrozil 600 Mg Tablet 600 Mg PO Vital Signs Vital Signs Date Time Temp Pulse Resp B/P (MAP) Pulse Ox O2 Delivery O2 Flow Rate FiO2 08/22/19 11:37 99.1 99 20 119/80 (93) 95 Room Air 99.1 08/21/19 07:30 95.0 Labs Laboratory Tests Test 08/21/19 03:55 08/21/19 11:00 08/21/19 16:44 08/21/19 20:51 White Blood Count 11.0 x10^3/uL (4.0-11.0) Red Blood Count 4.80 x10^6/uL (3.50-5.40) Hemoglobin 14.0 g/dL (12.0-15.5) Hematocrit 41.3 % (36.0-47.0) Mean Corpuscular Volume 86 fL (79-100) Mean Corpuscular Hemoglobin 29 pg (25-35) Mean Corpuscular Hemoglobin Concent 34 g/dL (31-37) Red Cell Distribution Width 14.3 % (11.5-14.5) Platelet Count 279 x10^3/uL (140-400) Neutrophils (%) (Auto) 59 % (31-73) Lymphocytes (%) (Auto) 27 % (24-48) Monocytes (%) (Auto) 9 % (0-9) Eosinophils (%) (Auto) 4 % (0-3) Basophils (%) (Auto) 1 % (0-3) Neutrophils # (Auto) 6.5 x10^3/uL (1.8-7.7) Lymphocytes # (Auto) 2.9 x10^3/uL (1.0-4.8) Monocytes # (Auto) 1.0 x10^3/uL (0.0-1.1) Eosinophils # (Auto) 0.4 x10^3/uL (0.0-0.7) Basophils # (Auto) 0.1 x10^3/uL (0.0-0.2) Sodium Level 138 mmol/L (136-145) Potassium Level 3.4 mmol/L (3.5-5.1) Chloride Level 100 mmol/L (98-107) Carbon Dioxide Level 26 mmol/L (21-32) Anion Gap 12 (6-14) Blood Urea Nitrogen 13 mg/dL (7-20) Creatinine 0.7 mg/dL (0.6-1.0) Estimated GFR (Cockcroft-Gault) 85.6 BUN/Creatinine Ratio 19 (6-20) Glucose Level 175 mg/dL (70-99) Calcium Level 9.0 mg/dL (8.5-10.1) Total Bilirubin 0.5 mg/dL (0.2-1.0) Aspartate Amino Transf (AST/SGOT) 20 U/L (15-37) Alanine Aminotransferase (ALT/SGPT) 25 U/L (14-59) Alkaline Phosphatase 62 U/L (46-116) Troponin I Quantitative < 0.017 ng/mL (0.000-0.055) < 0.017 ng/mL (0.000-0.055) Total Protein 7.9 g/dL (6.4-8.2) Albumin 3.5 g/dL (3.4-5.0) Albumin/Globulin Ratio 0.8 (1.0-1.7) Triglycerides Level 173 mg/dL (0-150) Cholesterol Level 177 mg/dL (0-200) LDL Cholesterol, Calculated 88 mg/dL (0-100) VLDL Cholesterol, Calculated 35 mg/dL (0-40) Non-HDL Cholesterol Calculated 123 mg/dL (0-129) HDL Cholesterol 54 mg/dL (40-60) Cholesterol/HDL Ratio 3.3 Thyroid Stimulating Hormone (TSH) 5.039 uIU/mL (0.358-3.74) Glucose (Fingerstick) 179 mg/dL (70-99) 108 mg/dL (70-99) Test 08/22/19 07:36 08/22/19 10:53 Glucose (Fingerstick) 187 mg/dL (70-99) 234 mg/dL (70-99) Laboratory Tests Test 08/21/19 16:44 08/21/19 20:51 08/22/19 07:36 08/22/19 10:53 Glucose (Fingerstick) 179 mg/dL (70-99) 108 mg/dL (70-99) 187 mg/dL (70-99) 234 mg/dL (70-99) Allergies Allergies Coded Allergies Type Severity Reaction Last Updated Verified Cephalexin Monohydrate Allergy Intermediate 10/18/17 Yes Penicillins Allergy Intermediate 10/18/17 Yes Disposition/Orders: D/C to Home Patient Instructions D/C PLANNING 23 MIN FULBRIGHT,CATHY W MD Aug 22, 2019 12:55
[2019-08-22] MEDS ORDERED: HYDR-2145 PO (12:57)
[2019-08-22] MEDS: ENOXAPARIN 40 MG/0.4 ML SYRINGE. SQ SCH (14:00)
[2019-08-22 15:17] VITALS: BP 108/74
--- NOTE | 2019-08-22 16:36 | NUR ---
Pt discharged to home with . Discharge teaching done. Pt and spouse verbalized understanding.
[2019-08-23] MEDS ORDERED: ESTRADIOL WEEKLY 0.1 MG PATCH. TD SCH (16:00)
[2019-08-26] MEDS ORDERED: ESTRADIOL WEEKLY 0.1 MG PATCH. TD SCH (16:00)
== END 2019-08-22 16:36 | disposition home or self-care (01) | DRG 305 ==
LOC: ER 03:21 → ED HOLD 05:00 → 6 SOUTH 17:17
PROVIDERS: ADMIT Internal Medicine; ATTEND Internal Medicine
DX: I16.0 Hypertensive urgency (principal); E11.9 Type 2 diabetes mellitus without complications; E66.01 Morbid (severe) obesity due to excess calories; E78.00 Pure hypercholesterolemia, unspecified; E78.5 Hyperlipidemia, unspecified; I10 Essential (primary) hypertension; M19.90 Unspecified osteoarthritis, unspecified site; N95.1 Menopausal and female climacteric states; Z82.49 Family history of ischemic heart disease and other diseases of the circulatory system; Z90.710 Acquired absence of both cervix and uterus; Z88.8 Allergy status to other drugs, medicaments and biological substances; Z88.0 Allergy status to penicillin; Z68.37 Body mass index [BMI] 37.0-37.9, adult
CPT/HCPCS: 36415; 71045; 80053; 80061; 82962; 84443; 84484; 85025; 93005; 99285; J0360; G0378